=== PATIENT | female | born 1975 | race Caucasian/White ===

== ENCOUNTER 2017-07-04 23:46 | Emergency (ER) | payer OTHER, SELFPAY ==
[2017-07-04 23:59] VITALS: BP 124/81; PULSE 93; RESP 18; TEMP 36.8; O2SAT 100; BMI 26.6
[2017-07-05] MEDS: SODIUM CHLORIDE 0.9% 1,000 ML 150 ML IV (00:39)
[2017-07-05 00:48] LABS: Add Manual Diff / Slide Review NO; Basophils Percent Auto 1.1 % (0-2); Eosinophils Percent Auto 1.3 % (2-4); Hematocrit 38.9 % (36-46); Hemoglobin 13.3 g/dL (12.0-16.0); Lymphocytes Percent Auto 29.9 % (25-40); Mean Corpuscular HGB Conc 34.3 % (30-36); Mean Corpuscular Hemoglobin 30.4 PG (26-34); Mean Corpuscular Volume 88.8 fL (80-100); Monocytes Percent Auto 8.3 % (3-14); Neutrophils Absolute Auto 9000 /uL (3000-5900); Neutrophils Percent Auto 59.4 % (50-75); Platelet Count 333 X10^3/uL (150-400); Red Blood Cell Count 4.38 X10^6/uL (4.0-5.2); Red Cell Distribution Width 14.7 % (11.6-14.8); White Blood Cell Count 15.1 X10^3/uL (4.5-11.0)
[2017-07-05 00:59] LABS: Alanine Aminotransferase 23 IU/L (9-52); Albumin 4.1 g/dL (3.5-5.0); Albumin Globulin Ratio 1.4 (1.0-2.8); Alkaline Phosphatase 57 U/L (38-126); Aspartate Aminotransferase 18 IU/L (14-36); BUN Creatinine Ratio 27.1 (6-22); Bilirubin Total 0.3 mg/dL (0.2-1.3); Calcium 9.3 mg/dL (8.4-10.2); Estimated Glomerular Filt Rate > 60.0 mL/min (>60); Glucose 117 mg/dL (70-100); HEMOLYSIS 15 (0-50); Lipase 86 U/L (23-300); Potassium 4.1 mmol/L (3.4-5.1); Sodium 142 mmol/L (137-145); Total Protein 7.1 g/dL (6.3-8.2)
--- NOTE | 2017-07-05 01:04 | DI.CT.S_ITS ---
PROCEDURE: CT ABDOMEN PELVIS W CON INDICATIONS: severe abdominal pain TECHNIQUE: After the administration of intravenous contrast, 5 mm thick sections acquired from the diaphragm to the symphysis. 5 mm coronal and sagittal reformats were acquired. For radiation dose reduction, the following was used: automated exposure control, adjustment of mA and/or kV according to patient size. COMPARISON: None. FINDINGS: Image quality: Excellent. ABDOMEN: Lung bases: Lung bases are clear. Heart size is normal. Solid organs: Liver is normal in size and enhancement. Gallbladder is not visualized but metallic surgical clips are not found. Presumed cholecystectomy.. Biliary system is non dilated. Pancreas enhances normally. Spleen is normal in size and enhancement. No adrenal nodules. Kidneys demonstrate normal size and enhancement, without hydronephrosis. Peritoneum and bowel: Bowel loops demonstrate normal wall thickness and caliber. No free fluid or air. Nodes and vessels: No retroperitoneal or mesenteric adenopathy by size criteria. Aorta and inferior vena cava are normal in size. Miscellaneous: No ventral hernias. PELVIS: Genitourinary: Bladder wall thickness is normal. Note is made of prominence of the ovaries bilaterally greater on the right than the left with multiple ovarian cysts, and no associated free fluid deep within the pelvis. The right ovary measures up to 4.6 cm AP, 3.5 cm transverse, and 3.9 cm craniocaudad. Miscellaneous: No inguinal hernias or adenopathy. Bones: No suspicious bony lesions. No vertebral body compression fractures. IMPRESSION: Prominence of the ovaries bilaterally greater on the right than the left and the right ovary measures up to 4.6 x 3.5 x 3.9 cm. Please correlate clinically for presence or absence of pain associated with these findings. Followup by pelvic ultrasound likely is warranted. Etiology is uncertain but there is an absence of abnormal free fluid within the peritoneal space deep within the pelvis which would argue towards chronic rather than an acute etiology. Presumed cholecystectomy. Note: These findings are concordant with the preliminary interpretation. Dictated by: Dieter Ramos M.D. on 07/05/2017 at 9:40 Approved by: Dieter Ramos M.D. on 07/05/2017 at 9:43
[2017-07-05 01:17] VITALS: BP 124/81; PULSE 93; RESP 18; TEMP 36.8; O2SAT 100; BMI 26.6
[2017-07-05 01:36] LABS: Amorphous Sediment Urine 1+; Bacteria Urine Occasional (0-1); Culture Indicated Urine Cult Not Indicated; RBC Urine 0-1/HPF (0-5/HPF); Squamous Epithelial Cell Urine 0-1 /HPF; WBC Urine 0-1/HPF (0-5/HPF)
[2017-07-05] MEDS: KETOROLAC 60 MG/2 ML VIAL 15 MG IV (02:04)
[2017-07-05] MEDS: PANTOPRAZOLE 40 MG VIAL IV (02:05)
--- NOTE | 2017-07-05 03:13 | ED_ITS ---
HPI - Abdominal Pain General Chief Complaint: Abdominal Pain Stated Complaint: SHORTNESS OF BREATHBURNING IN STOMACH HAS HERNIAS Time Seen by Provider: 07/05/17 00:08 Source: patient Mode of arrival: ambulatory Limitations: no limitations History of Present Illness HPI narrative: Patient presents to the emergency department this evening with a chief complaint of ongoing epigastric and right upper quadrant abdominal pain for almost a week. She was initially seen and evaluated [facility] the [place] [facility] and had blood work noting an elevated white blood cell count and a CT suggesting fat containing hernia. She was sent to [facility] and evaluated by the emergency department as well as the general surgeon. They felt her symptoms were not related to the hernia and she demonstrated improved labs and was sent home. She followed up in that Emergency Department 3 days later with a similar exam and no repeat imaging. She presents today with similar symptoms and is requesting a 2nd opinion. She states her pain is worse when she moves and improves with rest. She has associated nausea but denies vomiting MD complaint: abdominal pain Onset (ago): day(s) Pain Consistency: constant Location: RUQ, epigastric and R flank Severity: moderate Quality: cramping and aching Migration to: R flank Relieving factors: nothing Exacerbating factors: movement Associated symptoms: nausea Related Data Home Medications Medication Instructions Recorded Confirmed amlodipine 5 mg PO DAILY 07/05/17 07/05/17 lisinopril 20 mg PO DAILY 07/05/17 07/05/17 metformin 500 mg PO DAILY 07/05/17 07/05/17 Review of Systems Review of Systems All systems reviewed & are unremarkable except as noted in HPI and below Constitutional Denies chills, Denies fever(s), Denies lethargy and Denies weakness Eyes Denies change in vision, Denies eye discharge, Denies irritation and Denies loss of vision ENT Ears, Nose, Mouth, and Throat: Denies change in voice, Denies neck pain, Denies sore throat and Denies throat swelling Cardiovascular Denies chest pain, Denies irregular heart rhythm, Denies lightheadedness, Denies palpitations and Denies orthopnea Respiratory Denies wheezing Gastrointestinal Gastrointestinal: Reports abdominal pain, Denies change in bowel habits, Denies diarrhea, Denies nausea and Denies vomiting Genitourinary Denies hematuria, Denies flank pain, Denies urinary incontinence and Denies urinary urgency Musculoskeletal Denies neck pain Integumentary/Breasts Denies pruritus, Denies erythema, Denies rash and Denies wounds Neurologic Denies confusion, Denies loss of vision and Denies weakness Psychiatric Denies anxiety, Denies confusion, Denies depression, Denies homicidal ideation and Denies suicidal ideation Endocrine Denies palpitations Allergic/Immunologic Denies urticaria, Denies throat swelling and Denies wheezing Exam Initial Vital Signs Initial Vital Signs: Vital Signs Temperature 98.3 F 07/04/17 23:59 Pulse Rate 93 H 07/04/17 23:59 Respiratory Rate 18 07/04/17 23:59 Blood Pressure 124/81 H 07/04/17 23:59 Pulse Oximetry 100 07/04/17 23:59 Const General: cooperative and well developed Nutritional Appearance: well nourished Orientation: alert, awake, oriented x3 and not confused HENMT Head: normocephalic and atraumatic Ears: external ears normal and TM's normal bilaterally Nose: external nose normal and No nasal discharge Face and sinus: sinuses nontender, face symmetric, no sinus tenderness and No dry mucous membranes Mouth: oral mucosae normal and moist mucous membranes Teeth and gingiva: dentition normal Throat: tonsils normal and uvula midline Eyes General: appearance normal, both eyes and all related structures Eyelids: eyelids normal Pupils: PERRL EOM: EOM intact bilaterally Neck Neck: normal visual inspection, trachea midline, No lymphadenopathy, No midline deformity and No JVD Lymphatic: No lymphedema Resp Effort & Inspection: normal respiratory effort, able to speak in complete sentences, no respiratory distress and no use of accessory muscles Auscultation: clear to auscultation bilaterally, no rales, no rhonchi and no wheezes Cardio Rate: regular rate Rhythm: regular rhythm Heart Sounds: no click, no gallops, no murmurs and no rubs Pulses: normal peripheral pulses GI Inspection: distended Palpation: soft, no hepatosplenomegaly, No guarding, No pulsatile mass and tender Auscultation: normal bowel sounds Back/Spine/Pelvis Back: No CVA tenderness Cervical Spine: cervical ROM normal and No pain with cervical ROM Thoracic/Lumbar Spine: thoracic and lumbar spine normal to inspection Skin General: no rashes or lesions noted, No jaundice and No petechiae Neuro General: alert, oriented x3, gait normal and no focal motor deficits Speech: speech normal Extrem General: full ROM, no clubbing, cyanosis or edema, no pedal edema and no calf tenderness Course Orders Ordered: ED Orders 07/05/17 EKG-12 Lead Routine 07/05/17 00:26 Complete Blood Count AUTO DIFF Stat Comprehensive Metabolic Panel Stat Lipase Stat 07/05/17 01:04 CT abdomen pelvis w con Stat 07/05/17 01:15 Urine Microscopic Stat Sodium Chloride (Normal Saline 0.9%) 1,000 mls @ 150 mls/hr IV CONT SUSAN Last Admin: 07/05/17 00:39 Dose: 150 mls/hr Sodium Chloride (Normal Saline 0.9%) 1,000 mls @ 150 mls/hr IV CONT SUSAN Last Admin: 07/05/17 00:39 Dose: Not Given Discontinued Medications Ketorolac Tromethamine (Toradol) 15 mg IV NOW ONE Stop: 07/05/17 01:56 Last Admin: 07/05/17 02:04 Dose: 15 mg Pantoprazole Sodium (Protonix) 40 mg IV NOW ONE Stop: 07/05/17 01:56 Last Admin: 07/05/17 02:05 Dose: 40 mg Reevaluation(s) Reevaluation #1: patient feeling much better after above stated meds. Vital Signs - 8 hr 07/04/17 23:59 07/05/17 01:17 Temperature 98.3 F 98.3 F Pulse Rate 93 H 93 H Respiratory Rate 18 18 Blood Pressure 124/81 H 124/81 H Pulse Oximetry 100 100 MDM - Abdominal Pain Differential Diagnosis Differential diagnosis: Likely abdominal pain, constipation, diverticulitis, endometriosis, gastroenteritis, pancreatitis and small bowel obstruction Medical Records Attestation: I reviewed the patient's medical records. Lab Data Attestation: I reviewed the patient's lab results. Result diagrams: 07/05/17 00:26 07/05/17 00:26 Lab Results 07/05/17 07/05/17 07/05/17 Range/Units 00:26 00:26 01:15 WBC 15.1 H (4.5-11.0) X10^3/uL RBC 4.38 (4.0-5.2) X10^6/uL Hgb 13.3 (12.0-16.0) g/dL Hct 38.9 (36-46) % MCV 88.8 (80-100) fL MCH 30.4 (26-34) PG MCHC 34.3 (30-36) % RDW 14.7 (11.6-14.8) % Plt Count 333 (150-400) X10^3/uL Neut % (Auto) 59.4 (50-75) % Lymph % (Auto) 29.9 (25-40) % Collier % (Auto) 8.3 (3-14) % Eos % (Auto) 1.3 L (2-4) % Baso % (Auto) 1.1 (0-2) % Neut # (Auto) 9000 H (3648-7035) /uL Sodium 142 (137-145) mmol/L Potassium 4.1 (3.4-5.1) mmol/L Chloride 104.0 (98-107) mmol/L Carbon Dioxide 26.0 (22-32) mmol/L BUN 19.0 H (7-17) mg/dL Creatinine 0.70 (0.52-1.04) mg/dL Estimated GFR > 60.0 (>60) mL/min BUN/Creatinine Ratio 27.1 H (6-22) Glucose 117 H (70-100) mg/dL Calcium 9.3 (8.4-10.2) mg/dL Total Bilirubin 0.3 (0.2-1.3) mg/dL AST 18 (14-36) IU/L ALT 23 (9-52) IU/L Alkaline Phosphatase 57 (38-126) U/L Total Protein 7.1 (6.3-8.2) g/dL Albumin 4.1 (3.5-5.0) g/dL Globulin 3.0 (1.7-4.1) g/dL Albumin/Globulin Ratio 1.4 (1.0-2.8) Lipase 86 (23-300) U/L Urine RBC 0-1/hpf (0-5/HPF) Urine WBC 0-1/hpf (0-5/HPF) Ur Squamous Epith Cells 0-1 /hpf Amorphous Sediment 1+ Urine Bacteria Occasional (0-1) (None) Ur Culture Indicated? Cult not indicated Micro UA Comment Not Reportable Imaging Data CT scan - abdomen: Radiologist's impression: No obstruction. Small fat containing umbilical hernia MDM Narrative Medical decision making narrative: Patient labs reviewed and unremarkable. CT is essentially unchanged. Her abdominal exam is rather benign. She will follow up closely with her PCP to discuss further evaluation by GI/Gen Surg/sales and marketing professional Discharge Plan Departure Patient Disposition: Home, Self-Care Clinical Impression: Abdominal pain Instructions: DI for Abdominal Pain-Adult Prescriptions: No Action lisinopril 20 mg tablet 20 mg PO DAILY RF: 0 amlodipine 5 mg tablet 5 mg PO DAILY RF: 0 metformin 500 mg tablet 500 mg PO DAILY RF: 0 Referrals: [facility] [Outside]
[2017-07-05 03:21] VITALS: BP 120/80; PULSE 92; RESP 18; TEMP 36.8; O2SAT 100
== END 2017-07-05 03:21 | disposition home or self-care (01) ==
PROVIDERS: Emergency Provider Emergency Medicine
DX: R10.9 Unspecified abdominal pain (principal)
CPT/HCPCS: 36591; 74177; 80053; 81003; 81015; 83690; 85025; 93005; 96361; 96374; 96375; 99283; 99285; C9113; J1885; Q9967

== ENCOUNTER → 2017-07-29 09:07 | Outpatient (CLI) | payer OTHER, SELFPAY ==
[2017-07-29 10:50] LABS: Add Manual Diff / Slide Review NO; Basophils Percent Auto 0.7 % (0-2); Eosinophils Percent Auto 0.6 % (2-4); Hematocrit 43.3 % (36-46); Hemoglobin 14.7 g/dL (12.0-16.0); Mean Corpuscular HGB Conc 33.9 % (30-36); Mean Corpuscular Hemoglobin 30.7 PG (26-34); Mean Corpuscular Volume 90.6 fL (80-100); Monocytes Percent Auto 6.2 % (3-14); Neutrophils Absolute Auto 10200 /uL (3000-5900); Neutrophils Percent Auto 71.5 % (50-75); Platelet Count 384 X10^3/uL (150-400); Red Blood Cell Count 4.78 X10^6/uL (4.0-5.2); Red Cell Distribution Width 14.7 % (11.6-14.8); White Blood Cell Count 14.3 X10^3/uL (4.5-11.0)
[2017-07-29 10:52] LABS: Appearance Urine UA CLEAR; Bilirubin Urine UA NEGATIVE (NEGATIVE); Color Urine UA YELLOW; Glucose Urine UA NEGATIVE (Normal); Ketones Urine UA NEGATIVE (NEGATIVE); Leukocyte Esterase Urine UA NEGATIVE (NEGATIVE); Nitrite Urine UA Negative (Negative); Occult Blood Urine UA 2+ (Negative); Protein Urine UA NEGATIVE (Negative); Urobilinogen Urine UA 0.2 E.U./dL (0.2)
[2017-07-29 11:12] LABS: Bacteria Urine Few (2-10); RBC Urine 0-1/HPF (0-5/HPF); Squamous Epithelial Cell Urine 0-1 /HPF; WBC Urine 0-1/HPF (0-5/HPF)
[2017-07-29 11:13] LABS: Culture Indicated Urine Cult Not Indicated
[2017-07-29 11:21] LABS: Blood Urea Nitrogen 15 mg/dL (7-17); Calcium 9.8 mg/dL (8.4-10.2); Carbon Dioxide 23 mmol/L (22-32); Chloride 103 mmol/L (98-107); Estimated Glomerular Filt Rate > 60.0 mL/min (>60); Glucose 103 mg/dL (70-100); HEMOLYSIS < 15 (0-50); Potassium 3.8 mmol/L (3.4-5.1); Sodium 142 mmol/L (137-145)
== END ==
PROVIDERS: Visit Provider Obstetrics & Gynecology
DX: R10.2 Pelvic and perineal pain (principal)
CPT/HCPCS: 36415; 80048; 81001; 85025; 86850; 86900; 86901

== ENCOUNTER 2017-08-02 07:29 | Inpatient (IN) | payer OTHER, SELFPAY ==
[2017-07-31 14:25] VITALS: BMI 28.5
[2017-08-02] VITALS (14 sets, daily range): BP systolic 84–128; BP diastolic 20–78; PULSE 77–115; RESP 12–77; TEMP 36.5–36.9; O2SAT 95–100; BMI 28.5
--- NOTE | 2017-08-02 08:46 | PM.PREOP ---
Pre-operative Note Interval Note Pre-op Check: History & Physical Reviewed by Physician
--- NOTE | 2017-08-02 10:22 | SUR.OPER ---
Lithotomy on padded OR bed. [place] Pad Positioner under torso. Head on pillow, arms padded and tucked at sides. Legs secured in padded yellow fins stirrups.
--- NOTE | 2017-08-02 10:29 | SUR.OPER ---
to or ftom opd via mel transfered to or table per self
[2017-08-02] MEDS: CEFAZOLIN 2 GM/100 ML FROZ.PIGGY IV (10:48)
[2017-08-02] MEDS: LIDOCAINE 1% W/EPI INJ 20 ML INJ (10:50)
[2017-08-02] MEDS: BUPIVACAINE 0.25% (PF) 30 ML VIAL INJ (10:50)
[2017-08-02] MEDS: LACTATED RINGERS 1,000 ML 42 ML IV (12:10)
--- NOTE | 2017-08-02 13:39 | P.OP_ITS ---
Operative Date/Time/Diagnoses - Date of procedure: 08/02/17 Time of procedure: 08:45 Pre-op diagnosis: Chronic pelvic pain, complex right ovarian cyst, abnormal uterine bleeding Post-op diagnosis: other (Chronic pelvic pain, complex right ovarian cyst, abnormal uterine bleeding, pelvic adhesions) Procedure: Procedures Operation Date: 08/02/17 08:45 Actual Procedures Side Surgeon p Laparoscopic Assisted Vag Hysterectomy w/Bilat Salpinectomy; Bilat Oophorectomy,lysis of adhesions Bilateral Joslyn Khan MD Indications: The patient is a 42-year-old female here for laparoscopic-assisted vaginal hysterectomy, bilateral salpingectomies, and right oophorectomy for definitive surgical management of long-standing pelvic pain and recurrent ovarian cysts (history of polycystic ovarian syndrome). She also has a long history of cervical dysplasia and is status post LEEP procedure as well as cryo several years ago. Her most recent Pap smear showed low-grade cervical dysplasia, and she just had a colposcopy prior to surgery. Findings were consistent with mild disease, and pathology was insufficient but no concerning cells noted. In addition to her long-standing pelvic pain, she has recently developed increased bloating and right lower quadrant pain as well as heavy vaginal bleeding. Additionally, last week she had a fever to 102 ? F. However , prior to this date she had not had recurrent fevers. Her complete blood count the day of her last visit on 24 July noted an elevated white blood cell count, and she was treated empirically for pelvic inflammatory disease with Rocephin and doxycycline. She was also started on a control pill taper to manage her heavy bleeding; however, bleeding has continued since. Workup of her chronic pelvic pain was notable for a pelvic ultrasound that showed a 5-6 cm complex right ovarian cyst (hemorrhagic versus endometrioma). She has had chronic pelvic pain, primarily on the right, and she has a history of known polycystic ovarian syndrome, 1st diagnosed at age 19. She takes metformin due to increased insulin levels and symptoms such as irregular menses and hirsutism. She also has a history of infertility and conceived her only child 8 years ago through in vitro fertilization after years of trying. An abdominal x-ray, CT scan, and ultrasound have all been performed with the findings really only notable for the right ovarian cyst. She also has a small umbilical hernia (approximately 1 cm) on exam. Her 1 delivery was via section. She also has a history of a laparoscopic cholecystectomy. After review of all management options the patient desired to have a hysterectomy for definitive surgical management of these longstanding concerns. The benefits, limitations, expectations, risks, and alternatives were reviewed and the consent was reviewed and signed prior to the date of surgery. Surgeon: Joslyn Khan Podiatric Medicine Professor: Bryant Braswell Anesthesia Type: General and Local Operative Notes Findings: Exam under anesthesia: Uterus approximately 6 weeks in size, high within the pelvis with minimal mobility. No adnexal masses were palpable; however, the exam was limited by body habitus. Operative findings: Omental adhesions to the anterior peritoneum were noted at the midline extending from the umbilicus to the pelvis. Omentum was also adhered to the left fallopian tube and ovary. The left fallopian tube was dilated and clubbed consisting with a hydrosalpinx. The left ovary was slightly enlarged but otherwise normal in appearance. The right ovary was enlarged with multiple cysts and was adhered into the right pelvic fossa. Omentum was also adhered to the right ovary. The right fallopian tube appeared patent. The uterus appeared normal. The appendix was not visualized there were no bowel adhesions noted there was minimal scar tissue from the bladder to the site of her section. Closure Type: primary Specimen(s): left tube & ovary, right tube & ovary and uterus Applied: catheter Estimated blood loss (mL): 75 Blood products transfused: none Procedure in detail: The patient was taken to the operating room, where general endotracheal anesthesia was administered without complications. The patient was placed into the low dorsal lithotomy position with her lower extremities in Yellofin stirrups. Exam under anesthesia was then performed with the findings noted above. Perineum, vagina, and abdomen were then prepped and draped in a sterile fashion. A garrett catheter was then inserted. Procedure time-out was then performed. Attention was first turned to the perineum for placement of the uterine manipulator. A sterile bivalve speculum was inserted into the vagina, then the anterior lip of the cervix was grasped with a single-tooth tenaculum. The cervix was then serially dilated using Russ dilators until a HUMI uterine manipulator could be advanced. The balloon was inflated, then the tenaculum and speculum removed from the vagina. Local anesthetic was then injected infraumbilically using 0.25% Marcaine with epinephrine. A curvilinear incision was then made over her old laparoscopy scar , measuring approximately 7 mm in length. The abdominal wall was then grasped and tented up while a Veress needle was inserted through the incision. Saline drop test was suggestive of intraperitoneal placement. Carbon dioxide gas insufflation was then performed with appropriate opening pressures noted. After instilling approximately 2 L of carbon dioxide, a 5 mm 0 degree laparoscope within a 5 mm trocar was inserted through the anterior layers of the abdominal wall using Optiview technique. The abdomen and pelvis were visualized with the findings as noted above. The patient was placed into Trendelenburg position for better visualization. A second trocar was inserted at the patient's right lower quadrant. This was done by first instilling local anesthetic, then incising the skin and inserting a 5 mm trocar under direct visualization using the laparoscopic. A 3rd trocar was then placed to the patient's left lower quadrant in a similar fashion. Attention was 1st turned to lysis of adhesions. This was performed using the Olympus PlasmaKinetic, dissecting adjacent to the peritoneum. Once hemostasis was ensured, attention was turned to the pelvis, where the findings were as noted above. Given the presence of multiple adhesions and abnormal-appearing uterus fallopian tubes and ovaries, the decision was made to perform a bilateral salpingo-oophorectomy in order to minimize the risk of need for abdominal surgery in the future. Attention was first turned to the patient's left adnexa. The left fallopian tube and ovary were grasped with an atraumatic grasper and pulled medially and superiorly. The left ureter had been identified deep within the pelvis. Using the built.iomus PlasmaKinetic the ovarian pedicle was cross-clamped, cauterized, and then cut. This incision was then extended anteriorly. The left round ligament was cross-clamped, cauterized, and cut. The anterior sheath of the broad ligament was then undermined, cross-clamped, cauterized, and cut in serial pedicles to create the left side of the bladder flap. The posterior broad ligament was then also cross-clamped, cauterized, and cut. The uterine vessels were then cross-clamped, cauterized, and cut, any residual bleeding was controlled with cautery. Attention was then turned to the patient's right adnexa. Some thin omental adhesions were further dissected using Bovie cautery. The right ovary was densely adhered into the right ovarian fossa. The right ureter was identified and noted to pass just inferior to this adhesed plain. Using a combination of blunt dissection as well as Bovie cautery, and taking care to avoid any injury to the ureter, the ovary was freed from the ovarian fossa on the right. The fallopian tube and ovary were then grasped and pulled medially, and the ovarian vessels were cross-clamped, cauterized, and cut using the Olympus PlasmaKinetic. The left round ligament was then grasped and cross-clamped, cauterized, and cut. The anterior sheath of the broad ligament was then undermined and cut creating the right aspect of the bladder flap. The right uterine vessels were then cross-clamped, cauterized, and cut. Any residual bleeding was controlled with Bovie cautery. The pelvis was then surveyed and irrigated, and no additional bleeding was noted. At this time, the decision was made to proceed with the vaginal portion of the case. A small amount of laparoscopic carbon dioxide gas was allowed to remain in the abdomen; however, the instruments were removed, leaving the trocars in place. The patient was then placed into the high dorsal lithotomy position, and her uterine manipulator was removed after deflating the balloon. A sterile weighted speculum was then placed in the posterior vagina, and a Menchaca speculum placed in the anterior vagina. The cervix was then grasped with a double tooth tenaculum, and 1% lidocaine with epinephrine was injected circumferentially. A circumferential incision was then made with Bovie cautery. The posterior peritoneum was incidentally entered during this portion of the case. This defect was then enlarged bluntly, and the Auvard weighted speculum was placed into the aperture. This was performed after tagging the peritoneum and posterior vagina with an 0 Vicryl suture. Using blunt technique with the radiotelegraph operator servicer's finger the anterior peritoneum was entered easily and a Manlius retractor placed. The left uterosacral ligament was cross clamped with a Krystina clamp, then tagged and suture-ligated with 0 Vicryl suture in a Krystina stitch fashion. The right uterosacral ligament was then secured in the same fashion. The right cardinal ligament and inferior uterine vessels were cross clamped with a Krystnia clamp, cut, and suture-ligated with an 0 Vicryl suture. The left cardinal ligament and anterior uterine vessels were secured in a similar fashion. This dissection freed the uterus and ovaries, and these were removed with gentle traction through the vagina. A small adhesion at the site of the right lower and right round ligament was cross clamped and cut during this process. Using a sponge stick and gentle traction on the uterosacral ligaments residual bleeding was noted on the patient's left side. This was secured with [id number] stitch of 0 Vicryl. Some residual bleeding on the patient's right side was controlled with Bovie cautery. A pursestring suture using 0 Vicryl was then initiated at the patient's bladder peritoneum anteriorly, including the left uterosacral ligament, describing across the inferior cul-de- sac, including the right uterosacral ligament, and passing back out at the bladder peritoneum. This was tied down. The vagina was then irrigated and suctioned. The vaginal mucosa was then closed with serial [id number] sutures of 0 Vicryl. A sponge stick was then placed, and the legs returned to the low lithotomy position. After changing the radiotelegraph operator servicer's gloves, laparoscopic insufflation was then re- performed, and the pelvis was visualized thoroughly. The vaginal cuff was irrigated and visualized, and no bleeding was noted. The ovarian pedicles were also visualized, and no bleeding was noted. An omental adhesion to the posterior aspect of the umbilicus was seen and dissected down using gentle traction. Hemostasis was noted at this site and throughout the omental dissection sites. All instruments were then removed from the abdomen, and carbon dioxide gas was allowed to escape. The trocars were then removed under direct visualization with the laparoscope. The laparoscopic incisions were then closed with 4 O Monocryl in a subcuticular fashion followed by application of skin adhesive. The sponge stick was then removed from the vagina. At this point the procedure was deemed complete. Sponge, lap, and needle counts were correct x3. There were no complications. The patient was subsequently awakened, extubated, and transferred to the PACU in stable condition. Complications: none Post-operative Condition: stable Disposition: Acute Care Plan for aftercare: See handout
[2017-08-02] MEDS: KETOROLAC 30 MG/ML VIAL IV ×2 (15:43→22:59)
[2017-08-02] MEDS: LACTATED RINGERS 1,000 ML 100 ML IV (15:43)
[2017-08-02] MEDS: MORPHINE 4 MG/ML INJ IV (18:14)
[2017-08-02] MEDS: OXYCODONE/ACETAMINOPHEN 5/325 TABLET 2 TAB PO (21:02)
[2017-08-02] MEDS: DOCUSATE 250 MG CAPSULE PO (21:03)
[2017-08-03 00:15] VITALS: BP 128/66; PULSE 78; RESP 16; TEMP 36.6; O2SAT 98
[2017-08-03] MEDS: MORPHINE 4 MG/ML INJ IV (00:28)
[2017-08-03] MEDS: OXYCODONE/ACETAMINOPHEN 5/325 TABLET 2 TAB PO ×2 (01:13→15:50)
[2017-08-03] MEDS: LACTATED RINGERS 1,000 ML 100 ML IV (01:16)
[2017-08-03 05:32] LABS: Add Manual Diff / Slide Review NO; Basophils Percent Auto 0.5 % (0-2); Hematocrit 36.7 % (36-46); Lymphocytes Percent Auto 10.1 % (25-40); Mean Corpuscular HGB Conc 32.6 % (30-36); Mean Corpuscular Hemoglobin 29.6 PG (26-34); Mean Corpuscular Volume 90.7 fL (80-100); Monocytes Percent Auto 6.1 % (3-14); Neutrophils Absolute Auto 20100 /uL (3000-5900); Neutrophils Percent Auto 83.3 % (50-75); Platelet Count 385 X10^3/uL (150-400); Red Blood Cell Count 4.04 X10^6/uL (4.0-5.2); Red Cell Distribution Width 14.7 % (11.6-14.8); White Blood Cell Count 24.1 X10^3/uL (4.5-11.0)
[2017-08-03 05:40] LABS: BUN Creatinine Ratio 18.3 (6-22); Blood Urea Nitrogen 11 mg/dL (7-17); Calcium 9.1 mg/dL (8.4-10.2); Carbon Dioxide 27 mmol/L (22-32); Chloride 100 mmol/L (98-107); Estimated Glomerular Filt Rate > 60.0 mL/min (>60); Glucose 106 mg/dL (70-100); HEMOLYSIS < 15 (0-50); Potassium 4.2 mmol/L (3.4-5.1); Sodium 137 mmol/L (137-145)
[2017-08-03 05:52] VITALS: BP 124/55; PULSE 70; RESP 16; TEMP 36.8; O2SAT 97
[2017-08-03 07:40] VITALS: BP 146/81; PULSE 68; RESP 16; TEMP 36.4; O2SAT 99
[2017-08-03] MEDS: DOCUSATE 250 MG CAPSULE PO (10:08)
--- NOTE | 2017-08-03 11:10 | CM.DANOTE ---
DCP Assessment: Pt is a 42 yo female, resident of [place]. Pt admitted for laparoscopic assisted vaginal hysterectomy w/ Dr Joslyn Khan. Pt's PCP is not listed; Insurance is [employer]. Reviewed chart, then met w/pt this morning and explained SW role. Pt explains she will be okay to go home today w/friend/neighbor to transport. Pt's soon to be ex- is caring for their 7 yo dtr until Monday. Pt has arranged for [employer] from -12 for her dtr until they leave for [place] in two weeks. Pt has assist from her neighbors if she were to need it. Pt up walking to halls this morning indp. Pt would like a raised toilet seat, this BOX PERSON suggests a few stores for purchase, also provided a list of DME lending options in [place], pt appreciative. Likely home later today if medically cleared. Following closely in case any DC needs or concerns arise. MORTEZA Mcdonald
[2017-08-03 14:28] VITALS: BP 125/80; PULSE 76; RESP 16; TEMP 36.7; O2SAT 100
[2017-08-03 16:26] VITALS: BP 128/81; PULSE 69; RESP 18; TEMP 36.8; O2SAT 98
--- NOTE | 2017-08-03 17:38 | P.DS_ITS ---
Discharge Providers Date of admission: 08/02/17 07:29 Discharge provider: Joslyn Khan MD Summary Time Spent with Patient Total time spent providing and/or coordinating discharge services: < 30 min Objective Labs Result Diagrams: 08/03/17 05:14 08/03/17 05:14 Labs: Laboratory Results - last 24 hr 08/03/17 08/03/17 05:14 05:14 WBC 24.1 H RBC 4.04 Hgb 12.0 Hct 36.7 MCV 90.7 MCH 29.6 MCHC 32.6 RDW 14.7 Plt Count 385 Neut % (Auto) 83.3 H Lymph % (Auto) 10.1 L [place] % (Auto) 6.1 Eos % (Auto) 0.0 L Baso % (Auto) 0.5 Neut # (Auto) 39562 H Sodium 137 Potassium 4.2 Chloride 100 Carbon Dioxide 27 BUN 11 Creatinine 0.60 Estimated GFR > 60.0 BUN/Creatinine Ratio 18.3 Glucose 106 H Calcium 9.1 Discharge Plan Discharge Plan Patient Disposition: Home, Self-Care Discharge comment: See handout for discharge instructions Discharge Med Rec/Prescriptions Prescriptions: No Action lisinopril 20 mg tablet 20 mg PO DAILY RF: 0 amlodipine 5 mg tablet 5 mg PO DAILY RF: 0 metformin 500 mg tablet 500 mg PO DAILY RF: 0 PNV [id number] fumarate-FA [] 28 mg iron- 800 mcg Tablet 1 tab PO DAILY RF: 0 Provider Discharge Instructions Diet: Regular Activity: See handout Cold/Heat Therapy: As needed for pain Oxygen: None Wound Care Report to your healthcare provider any signs of infection, such as:: chills, fever, night sweats, increased pain and unusual drainage Dressing: None Other wound treatment: Monitor for signs of infection (see handout_ Visit Report/Discharge Packet Instructions: DI for Hysterectomy Stand Alone Forms: Surgery Discharge Print Language: Luxem[place]ish Discharge Data Attending Provider: Joslyn Khan Admit Date/Time: 08/02/17 07:29
--- NOTE | 2017-08-03 17:38 | PM.PN.1 ---
Subjective Date Patient Seen: 08/03/17 Time Patient Seen: 17:38 Interval history: The patient did very well overnight following an uncomplicated laparoscopic assisted vaginal hysterectomy with bilateral salpingo-oophorectomy and lysis of adhesions. She has been afebrile with normal and stable vital signs. She has been tolerating regular diet and passing flatus. Pain has been well controlled with IV Toradol and Percocet as needed. She has been up and ambulating in the room and has been voiding freely. She reports her Bai catheter was removed at 11:00 p.m. last evening. She desires discharge to home today. Exam Vital Signs (past 8 hours): Vital Signs - 8 hr 08/03/17 14:28 08/03/17 16:26 Temperature 98.1 F 98.2 F Pulse Rate 76 69 Respiratory Rate 16 18 Blood Pressure 125/80 H 128/81 H Pulse Oximetry 100 98 Pulse Oximetry 98 Oxygen Delivery Method Room Air Oxygen Flow Rate 0 Narrative Exam Narrative: General: The patient is sitting up in the chair, awake, alert, and oriented x3 and in no apparent distress. Heart: Regular rate and rhythm with no murmurs rubs or gallops. Lungs: Clear to auscultation bilaterally with no wheezes or crackles. Abdomen: Soft and appropriately tender with bowel sounds heard. No guarding or rebound present mild distention is noted. Incisions: Laparoscopic incisions examined x3. Skin glue was intact. There is no bruising, erythema, or discharge. Extremities: Warm and well perfused with no clubbing, cyanosis, or edema. Objective Labs Result Diagrams: 08/03/17 05:14 08/03/17 05:14 Labs: Laboratory Results - last 24 hr 08/03/17 08/03/17 05:14 05:14 WBC 24.1 H RBC 4.04 Hgb 12.0 Hct 36.7 MCV 90.7 MCH 29.6 MCHC 32.6 RDW 14.7 Plt Count 385 Neut % (Auto) 83.3 H Lymph % (Auto) 10.1 L [place] % (Auto) 6.1 Eos % (Auto) 0.0 L Baso % (Auto) 0.5 Neut # (Auto) 94146 H Sodium 137 Potassium 4.2 Chloride 100 Carbon Dioxide 27 BUN 11 Creatinine 0.60 Estimated GFR > 60.0 BUN/Creatinine Ratio 18.3 Glucose 106 H Calcium 9.1 Assessment & Plan (1) H/O hysterectomy with oophorectomy: Current visit: Yes Status: Acute (2) Female pelvic pain: Current visit: Yes Status: Acute (3) Abnormal uterine bleeding (AUB): Current visit: Yes Status: Acute Plan: Assessment/Plan Narrative: Assessment: The patient is postoperative day #1 Status post uncomplicated laparoscopic-assisted vaginal hysterectomy with bilateral salpingo-oophorectomy and lysis of adhesions for management of chronic female pelvic pain and abnormal uterine bleeding. Plan: 1. Discharge to home. 2. Discussed findings and surgical procedure. 3. Reviewed postoperative precautions, limitations, and expectations. 4. Reviewed discharge medications including resumption of home medications and additional Motrin and Percocet as needed for pain she also has Surfak as needed for constipation. 5. Follow up in the OBGYN clinic as scheduled on 14 August 2017 at 11:00 a.m.. Time Spent With Patient Time with patient: less than 15 minutes Quality VTE Deep Vein Thrombosis/Pulmonary Embolism Present on Admission: No
--- NOTE | 2017-08-03 17:46 | P.PN_ITS ---
Subjective Date Patient Seen: 08/03/17 Time Patient Seen: 17:38 Interval history: The patient did very well overnight following an uncomplicated laparoscopic assisted vaginal hysterectomy with bilateral salpingo -oophorectomy and lysis of adhesions. She has been afebrile with normal and stable vital signs. She has been tolerating regular diet and passing flatus. Pain has been well controlled with IV Toradol and Percocet as needed. She has been up and ambulating in the room and has been voiding freely. She reports her Bai catheter was removed at 11:00 p.m. last evening. She desires discharge to home today. Exam Vital Signs (past 8 hours): Vital Signs - 8 hr 3 08/03/17 14:28 08/03/17 16:26 Temperature 98.1 F 98.2 F Pulse Rate 76 69 Respiratory Rate 16 18 Blood Pressure 125/80 H 128/81 H Pulse Oximetry 100 98 Pulse Oximetry 98 Oxygen Delivery Method Room Air Oxygen Flow Rate 0 Narrative Exam Narrative: General: The patient is sitting up in the chair, awake, alert, and oriented x3 and in no apparent distress. Heart: Regular rate and rhythm with no murmurs rubs or gallops. Lungs: Clear to auscultation bilaterally with no wheezes or crackles. Abdomen: Soft and appropriately tender with bowel sounds heard. No guarding or rebound present mild distention is noted. Incisions: Laparoscopic incisions examined x3. Skin glue was intact. There is no bruising, erythema, or discharge. Extremities: Warm and well perfused with no clubbing, cyanosis, or edema. Objective Labs Result Diagrams: 08/03/17 05:14 08/03/17 05:14 Labs: Laboratory Results - last 24 hr 08/03/17 08/03/17 05:14 05:14 WBC 24.1 H RBC 4.04 Hgb 12.0 Hct 36.7 MCV 90.7 MCH 29.6 MCHC 32.6 RDW 14.7 Plt Count 385 Neut % (Auto) 83.3 H Lymph % (Auto) 10.1 L [place] % (Auto) 6.1 Eos % (Auto) 0.0 L Baso % (Auto) 0.5 Neut # (Auto) 66891 H Sodium 137 Potassium 4.2 Chloride 100 Carbon Dioxide 27 BUN 11 Creatinine 0.60 Estimated GFR > 60.0 BUN/Creatinine Ratio 18.3 Glucose 106 H Calcium 9.1 Assessment & Plan (1) H/O hysterectomy with oophorectomy: Current visit: Yes Status: Acute (2) Female pelvic pain: Current visit: Yes Status: Acute (3) Abnormal uterine bleeding (AUB): Current visit: Yes Status: Acute Plan: Assessment/Plan Narrative: Assessment: The patient is postoperative day #1 Status post uncomplicated laparoscopic-assisted vaginal hysterectomy with bilateral salpingo-oophorectomy and lysis of adhesions for management of chronic female pelvic pain and abnormal uterine bleeding. Plan: 1. Discharge to home. 2. Discussed findings and surgical procedure. 3. Reviewed postoperative precautions, limitations, and expectations. 4. Reviewed discharge medications including resumption of home medications and additional Motrin and Percocet as needed for pain she also has Surfak as needed for constipation. 5. Follow up in the OBGYN clinic as scheduled on 14 August 2017 at 11:00 a.m.. Time Spent With Patient Time with patient: less than 15 minutes Quality VTE Deep Vein Thrombosis/Pulmonary Embolism Present on Admission: No
== END 2017-08-03 18:15 | disposition home or self-care (01) | DRG 743 ==
PROVIDERS: Admitting Provider Obstetrics & Gynecology; Visit Provider Obstetrics & Gynecology
PROC: 0UT9FZZ Resection of Uterus, Via Natural or Artificial Opening With Percutaneous Endoscopic Assistance (ICD-10-PCS; principal; 2017-08-02 08:45)
DX: N83.201 Unspecified ovarian cyst, right side (principal); R10.2 Pelvic and perineal pain; N93.8 Other specified abnormal uterine and vaginal bleeding; E28.2 Polycystic ovarian syndrome; N73.6 Female pelvic peritoneal adhesions (postinfective)
CPT/HCPCS: 36415; 80048; 85025; J0690; J1100; J1885; J2250; J2270; J2405; J2704; J3010